=== PATIENT | female | born 2000 | race Caucasian/White ===

== ENCOUNTER 2018-01-17 09:59 | Emergency (ER) | payer OTHER, SELFPAY ==
[2018-01-17 11:09] LABS: Bilirubin Negative (Negative); Blood, Urine Negative (Negative); Clarity CLOUDY (Clear); Glucose, Urine (Dipstick) Negative (Negative); Leukocyte Trace (Negative); Nitrite Negative (Negative); Protein, Urine (Dipstick) Negative (Neg-Trace); Specific Gravity, Urine 1.015 (1.002-1.036); Urobilinogen 0.2 mg/dL (0.2-1.0); pH, Urine 7.5 (5.0-9.0)
[2018-01-17 11:11] LABS: Bacteria/HPF 1+ HPF (None Seen); Hyaline Casts/LPF 0-3 HYALINE CAST LPF (0-3 Hyaline); Pathc Cast-AUWi Flag 0.27 (0-2.49); RBC/HPF 0-3 HPF (0-3)
[2018-01-17 11:13] LABS: Pregnancy Test - Urine (BHCG) Negative (Negative); Pregu Control Background? CLEAR/WHITE (CLR/WHITE); Pregu Control Bar Appear? YES (CONTROL BAR); Specific Gravity 1.015 (1.002-1.036)
[2018-01-17] MEDS ORDERED: cefTRIAXone\\ROCEPHIN 250 MG VIAL ONE (11:35)
[2018-01-17] MEDS ORDERED: Lidocaine 1% PF 5 ML VIAL ONE (11:35)
[2018-01-17] MEDS ORDERED: Azithromycin 250 MG TAB ONE (11:35)
[2018-01-17] MEDS ORDERED: metroNIDAZOLE 250 MG TAB ONE (11:35)
[2018-01-19 01:06] LABS: Chlamydia by PCR DETECTED (NotDetected); GC by PCR Not Detected (NotDetected)
== END 2018-01-17 12:11 | disposition home or self-care (01) ==
LOC: ERS 09:59
DX: N89.8 Other specified noninflammatory disorders of vagina (principal)
CPT/HCPCS: 81003; 81015; 81025; 87086; 87480; 87491; 87510; 87591; 87660; 96372; J0696; J2001

== ENCOUNTER 2018-11-08 06:25 | Inpatient (IN) | payer OTHER ==
[2018-11-08 07:12] VITALS: BMI 31.4
--- NOTE | 2018-11-08 08:02 | PDOC.FPROB ---
FMR OB H&P: HPI - History of Present Illness Chief Complaint: LOF, cxns History of Present Illness: 18 yo @ 40.1 wk by 8.3 wk jeffrey presents for contractions starting this morning at 0230. She also reports leaking of fluid since 10 AM yesterday morning , with a gush of clear yellow fluid upon arrival to L&D. This has been complicated by +chlamydia in 3T with neg FLOWER 3 days ago. She also has had anemia of which resolved with vitamins. In addition, she failed her 1 hr GTT but passed her 3 hr GTT, indicating glucose intolerance. She is GBS negative. Primary Care Physician: at [facility] FMR OB H&P: Current - Care : 1 Para: 0 Gestational age: 40.1 Due date: 11/07/18 Dating Criteria: US @ 8.3 wk Course/Complications: Anemia of , resolved (last Hgb 11.9 on 10/05/18) +Chlamydia in 3T, her and partner treated, neg FLOWER on 11/05/18 Glucose intolerance. 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: +chlamydia in 2017 - Surgical History Sx History: None - Social History Social History: Denies alcohol/tobacco/drug use - Family History Family History: DM in maternal grandparents distant relative (unknown relation) with heart disease <50 yrs FMR OB H&P: Medications - Current Home Medications: Medication Instructions Recorded Confirmed Type No122/Iron/Folic Acid 1 each PO DAILY 08/07/18 11/08/18 History [ Multi Tablet] Allergies/Adverse Reactions: Allergies Allergy/AdvReac Type Severity Reaction Status Date / Time No Known Allergies Allergy Verified 11/08/18 10:50 FMR OB H&P: ROS - Review of Systems General: reports: fever/chills (+chills) Eyes: denies: eye pain, vision changes ENT: reports: other (Ears: no hearing loss, no ear pain Throat: no sore throat, no post nasal drip). denies: nasal congestion, rhinorrhea, sore throat Cardiovascular: denies: chest pain, palpitation Respiratory: denies: cough, congestion, shortness of breath Gastrointestinal: reports: abdominal pain, nausea, vomiting, diarrhea. denies: constipation Genitourinary (Female): reports: vaginal discharge, contractions, vaginal pressure. denies: dysuria, hematuria, vaginal bleeding Musculoskeletal: reports: pain (of belly with contractions). denies: swelling Neurologic: denies: headache Psychological: denies: depression, anxiety FMR OB H&P: Vital Signs - Maternal Vital signs: Vital Signs - First Documented Temp Pulse Resp BP 99.1 F 87 18 125/76 11/08/18 06:32 11/08/18 06:32 11/08/18 06:32 11/08/18 06:32 - Heart Tones Baseline: 145 Variability: minimal (Minimal to moderate, 1 variable decel with cervical check. Improved to Cat 1 with baseline 145, mod variability, accelerations present, and no decels) Acceleration: present Deceleration: variable Category: category 2 FMR OB H&P: Physical Exam - Physical Exam General: awake, alert and oriented Deviation from normal: In visible distress and pain with contractions HEENT: normocephalic and atraumatic, PERRLA, EOMI, MMM, conjunctiva clear, normal nasal mucosa, oropharynx clear Neck: supple, no LAD Heart: RRR, normal S1/S2, no murmurs/rubs/gallops, pulses present General: CTAB, no respiratory distress, good air movement, no wheezing, no retractions Abdomen: soft, gravid, non-tender, bowel sound present Neurological: no focal deficit Skin: no rash, good tugor, capillary refill <2 seconds Psychiatric: intact recent and remote memory, good judgement and insight, normal mood and affect - Pelvic Exam Vulva: normal hair distribution, appropriate rayo stage SVE: 2/80/-1 Membranes: SROM Presentation: cephalic, confirmed with sono Estimated Weight: 7 lbs FMR OB H&P: A/P - Problem List (1) Third trimester Current Visit: Yes Status: Acute Code(s): Z34.93 - ENCNTR FOR SUPRVSN OF NORMAL PREG, UNSP, THIRD TRIMESTER (2) Anemia affecting Current Visit: Yes Status: Resolved Code(s): O99.019 - ANEMIA COMPLICATING , UNSPECIFIED TRIMESTER (3) Hx of maternal chlamydia infection, currently Current Visit: Yes Status: Acute Code(s): O09.299 - SUPRVSN OF PREG W POOR REPRODCTV OR OBSTET HISTORY, UNSP TRI; Z86.19 - PERSONAL HISTORY OF OTHER INFECTIOUS AND PARASITIC DISEASES; Z87.59 - PERSONAL HISTORY OF COMP OF PREG, CHLDBRTH AND THE PUERP (4) Current Visit: Yes Status: Acute (5) -induced glucose intolerance Current Visit: Yes Status: Acute Code(s): O99.810 - ABNORMAL GLUCOSE COMPLICATING Discussion: Date/Time: 11/08/18 0802 18 yo @ 40.1 wk by 8.3 wk jeffrey presents for contractions and SROM sIUP -SVE /-1 @ 0730 -FHTs now Cat 1: baseline 145, mod variability, accels present, no decels, cxns q2min -GBS negative -chlamydia FLOWER negative on 11/05/18, repeat G/C pending -Desires epidural -LR @ 125 -zofran for nausea -Patient unsure of contraception after delivery -Plans to breast and bottle feed -Rupture reported almost 24 hrs prior, monitor closely for s/s of chorioamnionitis -Patient currently in latent labor, Anticipate -Recheck after epidural placement, consider IUPC if no cervical change to monitor SVUs and titrate pitocin Attending Addendum - Attending Addendum Date/Time: 11/08/18 1352 I personally evaluated the patient and discussed the management with Dr. Greco this morning. I agree with the History, Examination, Assessment and Plan documented above with any addition or exceptions noted below.
[2018-11-08] MEDS ORDERED: Promethazine HCl 25 MG/ML VIAL IM PRN ×2 (08:22→10:33)
[2018-11-08] MEDS ORDERED: Ondansetron PF 4 MG/2 ML Vial IVP PRN ×2 (08:22→10:33)
[2018-11-08] MEDS ORDERED: Docusate 100 MG CAP PO PRN (08:22)
[2018-11-08] MEDS ORDERED: Acetaminophen 500 MG TAB PO PRN (08:22)
[2018-11-08] MEDS ORDERED: Butorphanol Tartrate 1 MG/ML VIAL SLOW IVP PRN (08:22)
[2018-11-08] MEDS ORDERED: Lidocaine 1% (PF) 30 ML VIAL SC PRN (08:27)
[2018-11-08] MEDS: Lactated Ringer's 1,000 ML IV SCH ×3 (08:33→12:02)
[2018-11-08] MEDS ORDERED: Ondansetron PF 4 MG/2 ML Vial ONE (08:52)
[2018-11-08] MEDS ORDERED: Fentanyl 4 mcg/Bup 0.1% Cadd 100 ML ONE ×2 (09:13→16:15)
[2018-11-08 09:37] LABS: Hemoglobin 12.7 g/dL (12.0-16.0); Mean Corpuscular HGB CONC 32.9 g/dL (32.0-36.0); Mean Corpuscular Hemoglobin 26.9 pg (25.0-35.0); Mean Corpuscular Volume 81.8 fL (78.0-98.0); Mean Platelet Volume 6.5 fL (7.4-10.4); Platelet Count 271 thou/uL (130-400); RBC Distribution Width 13.4 % (11.5-14.5); Red Blood Cell (RBC) Count 4.71 mill/uL (4.00-5.20)
[2018-11-08 10:14] LABS: HBSAg Index 0.19 S/CO (0-0.99); Hep B Surf Ag Non-Reactive S/CO (NonReactive); Syphilis Antibody Nonreactive (Nonreactive); Syphilis Antibody Index 0.18 S/CO (<1.00 Non-Reactive)
[2018-11-08] MEDS: Fentanyl 4 mcg/Bupivacaine 0.1% Cassette 100 ML EPIDURAL SCH ×2 (10:30→16:17)
[2018-11-08] MEDS ORDERED: Lactated Ringer's 500 ML IV PRN (10:33)
[2018-11-08] MEDS ORDERED: Acetaminophen 325 MG TAB PO PRN (10:33)
[2018-11-08] MEDS ORDERED: Naloxone HCl 0.4 mg/ml Vial IVP PRN ×2 (10:33)
[2018-11-08] MEDS ORDERED: ePHEDrine/0.9% NaCl/PF SYRINGE 50 mg/10 ml SLOW IVP PRN (10:33)
[2018-11-08] MEDS ORDERED: Eucerin (Mineral Oil/Petrolatum,White) 30 gm Jar TOP PRN (10:33)
[2018-11-08] MEDS ORDERED: diphenhydrAMINE 50 MG/ML VIAL IVP PRN (10:33)
[2018-11-08] MEDS ORDERED: Communication Order-Pharmacy FS SCH (10:45)
[2018-11-08] MEDS ORDERED: Bupivacaine/Epinephrine 0.25% 30 ML VIAL ONE (11:11)
--- NOTE | 2018-11-08 11:32 | PDOC.LDPN ---
Labor & Delivery Progress Note - Subjective Subjective: comfortable - Objective Vital signs reviewed and normal: yes General: NAD, resting Dilation: 7 Effacement: 100% Station: 1+ FHT: category 1, variability present [place] contractions every: q2min - Assessment (1) Third trimester Code(s): Z34.93 - ENCNTR FOR SUPRVSN OF NORMAL PREG, UNSP, THIRD TRIMESTER Current Visit: Yes Status: Acute (2) Anemia affecting Code(s): O99.019 - ANEMIA COMPLICATING , UNSPECIFIED TRIMESTER Current Visit: Yes Status: Resolved (3) Hx of maternal chlamydia infection, currently Code(s): O09.299 - SUPRVSN OF PREG W POOR REPRODCTV OR OBSTET HISTORY, UNSP TRI ; Z86.19 - PERSONAL HISTORY OF OTHER INFECTIOUS AND PARASITIC DISEASES; Z87.59 - PERSONAL HISTORY OF COMP OF PREG, CHLDBRTH AND THE PUERP Current Visit: Yes Status: Acute (4) Current Visit: Yes Status: Acute (5) -induced glucose intolerance Code(s): O99.810 - ABNORMAL GLUCOSE COMPLICATING Current Visit: Yes Status: Acute Plan: continue plan of care
--- NOTE | 2018-11-08 13:07 | PDOC.LDPN ---
Labor & Delivery Progress Note - Subjective Subjective: comfortable - Objective Vital signs reviewed and normal: yes General: NAD Dilation: 8 Effacement: 100% Station: 1+ FHT: category 1, variability present [place] contractions every: 1-3 minutes - Assessment (1) Third trimester Code(s): Z34.93 - ENCNTR FOR SUPRVSN OF NORMAL PREG, UNSP, THIRD TRIMESTER Current Visit: Yes Status: Acute (2) Anemia affecting Code(s): O99.019 - ANEMIA COMPLICATING , UNSPECIFIED TRIMESTER Current Visit: Yes Status: Resolved (3) Hx of maternal chlamydia infection, currently Code(s): O09.299 - SUPRVSN OF PREG W POOR REPRODCTV OR OBSTET HISTORY, UNSP TRI ; Z86.19 - PERSONAL HISTORY OF OTHER INFECTIOUS AND PARASITIC DISEASES; Z87.59 - PERSONAL HISTORY OF COMP OF PREG, CHLDBRTH AND THE PUERP Current Visit: Yes Status: Acute (4) Current Visit: Yes Status: Acute (5) -induced glucose intolerance Code(s): O99.810 - ABNORMAL GLUCOSE COMPLICATING Current Visit: Yes Status: Acute Plan: continue plan of care -: 18 yo @ 40.1 wk by 8.3 wk sono presents for contractions and SROM sIUP -SVE 280/-1 @ 0730 -SVE 595/1 -SVE 7/100/+1 @ 1100 -SVE 8/100/+1 @ 1300 -FHTs now Cat 1: baseline 125, mod variability, accels present, no decels, cxns q2min; occasional periods of minimal variability -GBS negative -chlamydia FLOWER negative on 11/05/18 -Desires epidural -LR @ 125 -zofran for nausea -Patient unsure of contraception after delivery -Plans to breast and bottle feed -Rupture reported almost 24 hrs prior, monitor closely for s/s of chorioamnionitis -Patient currently in latent labor, Anticipate -Recheck SVE in 2 hrs
--- NOTE | 2018-11-08 15:14 | PDOC.LDPN ---
Labor & Delivery Progress Note - Subjective Subjective: comfortable - Objective Vital signs reviewed and normal: yes General: NAD, resting SVE: 9/100/+2 Dilation: 9 Effacement: 100% Station: 2+ FHT: category 1, variability present - Assessment (1) Third trimester Code(s): Z34.93 - ENCNTR FOR SUPRVSN OF NORMAL PREG, UNSP, THIRD TRIMESTER Current Visit: Yes Status: Acute (2) Anemia affecting Code(s): O99.019 - ANEMIA COMPLICATING , UNSPECIFIED TRIMESTER Current Visit: Yes Status: Resolved (3) Hx of maternal chlamydia infection, currently Code(s): O09.299 - SUPRVSN OF PREG W POOR REPRODCTV OR OBSTET HISTORY, UNSP TRI ; Z86.19 - PERSONAL HISTORY OF OTHER INFECTIOUS AND PARASITIC DISEASES; Z87.59 - PERSONAL HISTORY OF COMP OF PREG, CHLDBRTH AND THE PUERP Current Visit: Yes Status: Acute (4) Current Visit: Yes Status: Acute (5) -induced glucose intolerance Code(s): O99.810 - ABNORMAL GLUCOSE COMPLICATING Current Visit: Yes Status: Acute Plan: continue plan of care -: 18 yo @ 40.1 wk by 8.3 wk sono presents for contractions and SROM sIUP -SVE 2/80/-1 @ 0730 -SVE 5/95/1 -SVE 7/100/+1 @ 1100 -SVE 8/100/+1 @ 1300 -sve 9/100/+2 @ 1500 -FHTs Cat 1: baseline 130 mod variability, cxns q2min, decel while doing cervical check -GBS negative -chlamydia FLOWER negative on 11/05/18 -Epidural in place, patient resting comfortably -LR @ 125 -zofran for nausea -Patient unsure of contraception after delivery -Plans to breast and bottle feed -Rupture reported almost 24 hrs prior, monitor closely for s/s of chorioamnionitis -Patient currently in active labor, Anticipate -Recheck SVE in 2 hrs <Afia Greco - Last Filed: 11/08/18 15:14> Attending Addendum - Attending Addendum Date/Time: 11/08/18 [id number] I personally evaluated the patient and discussed the management with Dr. Greco. I agree with the History, Examination, Assessment and Plan documented above with any addition or exceptions noted below. Two decelerations around last check but subsequently cat 1 after repositioning and FB. Continue to monitor. Anticipate . Dr. Murguia updated by residents. <Rico Cedeño - Last Filed: 11/08/18 16:36>
--- NOTE | 2018-11-08 17:04 | PDOC.LDPN ---
Labor & Delivery Progress Note - Subjective Subjective: comfortable - Objective General: NAD Dilation: 10 Effacement: 100% Station: 2+ FHT: category 2, variable decelerations, variability present [place] contractions every: 2 min - Assessment (1) Third trimester Code(s): Z34.93 - ENCNTR FOR SUPRVSN OF NORMAL PREG, UNSP, THIRD TRIMESTER Current Visit: Yes Status: Acute (2) Anemia affecting Code(s): O99.019 - ANEMIA COMPLICATING , UNSPECIFIED TRIMESTER Current Visit: Yes Status: Resolved (3) Hx of maternal chlamydia infection, currently Code(s): O09.299 - SUPRVSN OF PREG W POOR REPRODCTV OR OBSTET HISTORY, UNSP TRI ; Z86.19 - PERSONAL HISTORY OF OTHER INFECTIOUS AND PARASITIC DISEASES; Z87.59 - PERSONAL HISTORY OF COMP OF PREG, CHLDBRTH AND THE PUERP Current Visit: Yes Status: Acute (4) Current Visit: Yes Status: Acute (5) -induced glucose intolerance Code(s): O99.810 - ABNORMAL GLUCOSE COMPLICATING Current Visit: Yes Status: Acute Plan: continue plan of care -: 18 yo @ 40.1 wk by 8.3 wk sono presents for contractions and SROM sIUP -SVE 2/80/-1 @ 0730 -SVE 5/95/1 -SVE 7/100/+1 @ 1100 -SVE 8/100/+1 @ 1300 -sve 9/100/+2 @ 1500 -SVE 10/100/+2 @ 1700 -FHTs Cat 1: baseline 130 mod variability, cxns q2min, decel while doing cervical check -GBS negative -chlamydia FLOWER negative on 11/05/18 -Epidural in place, patient resting comfortably -LR @ 125 -zofran for nausea -Patient unsure of contraception after delivery -Plans to breast and bottle feed -Rupture reported >24 hrs prior, monitor closely for s/s of chorioamnionitis -Anticipate
[2018-11-08] MEDS: NS / Oxytocin 40 units/1000ml 1,000 ML IV PRN ×2 (17:49→18:21)
--- NOTE | 2018-11-08 18:09 | PDOC.OPDEL ---
OB Operative/Delivery Note Delivery Dr/Surgeon: Mina Castillo Assist: attending Pre-Delivery Diagnosis: active labor Procedure/Post Delivery Dx: spontaneous vaginal delivery Weeks gestation: 40 (40.1) Anesthesia: epidural - Findings A Sex: female - 1 min: 9 - 5 min: 9 - Additional Findings/Plan Placenta delivered: spontaneous Repaired Obstetrical Laceration: 1st degree (rt posterior vaginal laceration repaired, rt periurethral 1st degree hemostatic laceration) Estimated blood loss: 750 Compilations/Other Findings: Vaginal Delivery Dictation Guideline Delivering Physician: Mina Castillo Attending: Procedure: Spontaneous Vaginal Delivery Anesthesia: epidural EBL: 750 ml Pre-op Diagnosis: 1. Term intrauterine in labor 2. Hx of glucose intolerance 3. Hx Chlamydia in 3T, s/p FLOWER Post-op Diagnosis: 1. Term intrauterine , delivered 2. same as above Indications: A 18y/o female presents in latent labor Delivery Note: This is 18 yo F G1 now P1 @ 40.1 wks who delivered a viable F infant at 1544 on 11/08/18. Following an uneventful antepartum course, a vigorous Female was delivered over an intact perineum in the AMEENA position. Anterior Shoulder and then remainder of the body delivered. No nuchal cord. The head was held down and mouth and nares were bulb suctioned. Cord clamped after delayed cord clamping and cut and cord blood collected. Placenta delivered intact in the Paul presentation with a 3 vessel cord noted. Fundal massage was performed and the fundus was firm. The cervix and vagina were inspected. Rt periurethral first degree laceration hemostatic. Rt posterior vaginal wall first degree laceration noted and repaired with 3.0 vicryl in the usual fashion with good approximation and hemostasis. Infant went to nursery in good condition for routine care. Apgars were 9/9 at 1 & 5 minutes, respectively. Patient tolerated delivery well and went to after routine recovery/ care. Post delivery plan: routine recovery
[2018-11-08] MEDS ORDERED: Milk Of Magnesia 30 ML UDCUP PO PRN (18:44)
[2018-11-08] MEDS ORDERED: Lanolin Ointment 7 GM TUBE TOP PRN (18:44)
[2018-11-08] MEDS ORDERED: Benzocaine/Menthol 20-0.5% 60 ML CAN TOP PRN (18:44)
[2018-11-08] MEDS ORDERED: NS / Oxytocin 40 units/1000ml 1,000 ML IV SCH (18:44)
[2018-11-08] MEDS ORDERED: Bisacodyl 10 MG SUPP PR PRN (18:44)
[2018-11-08] MEDS: Ibuprofen 800 MG TAB PO SCH (19:14)
[2018-11-08 19:33] LABS: Hemoglobin 12.8 g/dL (12.0-16.0)
[2018-11-08] MEDS: Docusate Calcium (SURFAK) 240 MG CAP PO SCH (21:55)
[2018-11-09] MEDS: Ibuprofen 800 MG TAB PO SCH ×3 (06:12→22:03)
--- NOTE | 2018-11-09 06:33 | PDOC.PP ---
Post Progress Note Post Day #: 1 Subjective: Patient is tired, did not sleep much last night. States she has a slight headache. Numbness has resolved. Patient has been up and walking, plans to walk to shower this morning. Eating and drinking small amounts. Blood flow is about the same as a period. Voided, no BM yet. PO intake tolerated: yes Flatus: yes Ambulation: yes Vital Signs (12 hours) Temp Pulse Resp BP Pulse Ox 11/09/18 00:05 99.3 F 98 28 H 110/68 11/08/18 22:05 98.7 F 79 28 H 119/67 11/08/18 21:05 98.7 F 80 24 H 128/70 98 Weight Weight 78.018 kg - Physical Examination General: NAD Cardiovascular: no m/r/g, RRR Respiratory: clear to auscultation bilaterally, non-labored breathing Abdominal: + bowel sounds, lochia, no distention, appropriately TTP Extremities: negative homans (B) Neurological: no gross focal deficits Psychiatric: A&Ox3, normal affect Result Diagrams: 11/08/18 19:25 Additional Labs: Post Labs Blood Type O POSITIVE 11/08/18 09:07 Hep Bs Antigen Non-Reactive S/CO (NonReactive) 11/08/18 09:06 (1) Third trimester Code(s): Z34.93 - ENCNTR FOR SUPRVSN OF NORMAL PREG, UNSP, THIRD TRIMESTER Status: Acute (2) Anemia affecting Code(s): O99.019 - ANEMIA COMPLICATING , UNSPECIFIED TRIMESTER Status : Resolved (3) Hx of maternal chlamydia infection, currently Code(s): O09.299 - SUPRVSN OF PREG W POOR REPRODCTV OR OBSTET HISTORY, UNSP TRI ; Z86.19 - PERSONAL HISTORY OF OTHER INFECTIOUS AND PARASITIC DISEASES; Z87.59 - PERSONAL HISTORY OF COMP OF PREG, CHLDBRTH AND THE PUERP Status: Acute (4) Status: Acute (5) -induced glucose intolerance Code(s): O99.810 - ABNORMAL GLUCOSE COMPLICATING Status: Acute - Assessment/Plan 18 yo @ 40.1 wk by 8.3 wk sono presents for contractions and SROM PPD#1 -Continue to work on feeding/stooling/ambulating today, has been eating a little and ambulated some already, has voided -GBS negative -chlamydia FLOWER negative on 11/05/18 -Rt 1st degree laceration, s/p repair -EBL 750 ml -Plans to breast and bottle feed, consulted -Rupture reported >24 hrs prior, monitor closely for s/s of infection -Epidural numbness resolved -Unsure about control at this time -IBP and tylenol for pain control Dispo: likely discharge tomorrow
[2018-11-09] MEDS ORDERED: Adacel (T-DAP) 0.5 ML SYRINGE IM ONE (09:00)
[2018-11-09] MEDS: Ferrous Sulfate 325 MG TAB PO SCH ×2 (10:33→19:10)
[2018-11-09] MEDS: Prenatal Vitamin 1 TAB PO SCH (10:34)
[2018-11-09] MEDS: Docusate Calcium (SURFAK) 240 MG CAP PO SCH ×2 (10:34→22:03)
--- NOTE | 2018-11-10 05:31 | PDOC.PP ---
Post Progress Note Post Day #: 2 Subjective: Eating, voiding, stooling, ambulating well. She is having some difficulty with breast feeding this morning. Pain is well controlled. Lochia is minimal. PO intake tolerated: yes Flatus: yes Ambulation: yes Vital Signs (12 hours) Temp Pulse Resp BP BP Pulse Ox 11/10/18 00:00 97.8 F 78 20 112/64 11/09/18 20:19 98.1 F 87 16 102/62 97 Weight Weight 78.018 kg - Physical Examination General: NAD Cardiovascular: no m/r/g, RRR Respiratory: clear to auscultation bilaterally Abdominal: + bowel sounds, lochia (minimal), no distention, appropriately TTP Extremities: negative homans (B) Neurological: no gross focal deficits Psychiatric: A&Ox3, normal affect Result Diagrams: 11/10/18 05:55 Additional Labs: Post Labs Blood Type O POSITIVE 11/08/18 09:07 Hep Bs Antigen Non-Reactive S/CO (NonReactive) 11/08/18 09:06 (1) Third trimester Code(s): Z34.93 - ENCNTR FOR SUPRVSN OF NORMAL PREG, UNSP, THIRD TRIMESTER Status: Acute (2) Anemia affecting Code(s): O99.019 - ANEMIA COMPLICATING , UNSPECIFIED TRIMESTER Status : Resolved (3) Hx of maternal chlamydia infection, currently Code(s): O09.299 - SUPRVSN OF PREG W POOR REPRODCTV OR OBSTET HISTORY, UNSP TRI ; Z86.19 - PERSONAL HISTORY OF OTHER INFECTIOUS AND PARASITIC DISEASES; Z87.59 - PERSONAL HISTORY OF COMP OF PREG, CHLDBRTH AND THE PUERP Status: Acute (4) Status: Acute (5) -induced glucose intolerance Code(s): O99.810 - ABNORMAL GLUCOSE COMPLICATING Status: Acute - Assessment/Plan 18 yo now P1 delivered via @ 40.1 wk on 11/08/18 @ 1744 PPD#2 -feeding/stooling/voiding/ambulating -Uterus firm and below umbilicus -GBS negative -chlamydia FLOWER negative on 11/05/18 -Rt 1st degree laceration, s/p repair -EBL 750 ml -Hgb 12.8-> 10.1, discharge on Fe -Plans to breast and bottle feed, consulted -No s/s of infection -Unsure about control at this time -IBP and tylenol for pain control Dispo: likely discharge today
[2018-11-10 06:15] LABS: Hemoglobin 10.1 g/dL (12.0-16.0); Mean Corpuscular HGB CONC 33.3 g/dL (32.0-36.0); Mean Corpuscular Hemoglobin 27.8 pg (25.0-35.0); Mean Corpuscular Volume 83.6 fL (78.0-98.0); Mean Platelet Volume 6.4 fL (7.4-10.4); Platelet Count 284 thou/uL (130-400); RBC Distribution Width 13.5 % (11.5-14.5); Red Blood Cell (RBC) Count 3.62 mill/uL (4.00-5.20); White Blood Cell (WBC) Count 14.3 thou/uL (4.8-10.8)
[2018-11-10] MEDS: Ibuprofen 800 MG TAB PO SCH ×2 (06:18→14:38)
[2018-11-10 07:52] VITALS: BP 120/77; TEMP 98.2
[2018-11-10] MEDS: Prenatal Vitamin 1 TAB PO SCH (10:07)
[2018-11-10] MEDS: Docusate Calcium (SURFAK) 240 MG CAP PO SCH (10:07)
[2018-11-10] MEDS: Ferrous Sulfate 325 MG TAB PO SCH ×2 (10:07→18:04)
== END 2018-11-10 18:17 | disposition home or self-care (01) | DRG 807 ==
LOC: L&D/OP 06:25 → L&D 08:14 → 3SW 21:20
PROVIDERS: ADMIT Family Medicine; ATTEND Family Medicine
PROC: 10E0XZZ Delivery of Products of Conception, External Approach (ICD-10-PCS; principal; 2018-11-08)
PROC: 0HQ9XZZ Repair Perineum Skin, External Approach (ICD-10-PCS; 2018-11-08)
DX: O70.0 First degree perineal laceration during delivery (principal); Z37.0 Single live birth; Z3A.40 40 weeks gestation of pregnancy; O71.82 Other specified trauma to perineum and vulva; O99.02 Anemia complicating childbirth; D64.9 Anemia, unspecified; O99.814 Abnormal glucose complicating childbirth
CPT/HCPCS: 36415; 51702; 76815; 85027; 86780; 86850; 86900; 86901; 87340; 99285; J0595; J2001; J2405

== ENCOUNTER 2018-12-17 18:02 | Emergency (ER) | payer OTHER ==
[2018-12-17 18:33] LABS: #Basophils 0.1 thou/uL (0.0-0.2); #Eosinphils 0.2 thou/uL (0.0-0.7); #Lymphocytes 3.5 thou/uL (1.20-3.40); #Monocytes 0.9 thou/uL (0.11-0.59); #Neutrophils 7.1 thou/uL (1.40-6.50); %Basophils 0.6 % (0.0-1.0); %Eosinophils 1.5 % (0.0-10.0); %Lymphocytes 29.7 % (28.0-48.0); %Monocytes 7.6 % (0.0-4.0); %Neutrophils 60.7 % (31.0-61.0); Hemoglobin 13.9 g/dL (12.0-16.0); Mean Corpuscular HGB CONC 32.6 g/dL (32.0-36.0); Mean Corpuscular Hemoglobin 27.7 pg (25.0-35.0); Mean Platelet Volume 5.9 fL (7.4-10.4); Platelet Count 406 thou/uL (130-400); RBC Distribution Width 13.1 % (11.5-14.5); White Blood Cell (WBC) Count 11.7 thou/uL (4.8-10.8)
[2018-12-17 18:36] LABS: BHCG - Serum Negative (NEGATIVE); Pregs Control Background? CLEAR/WHITE (CLR/WHITE); Pregs Control Bar Appear? YES (CONTROL BAR)
== END 2018-12-17 19:04 | disposition home or self-care (01) ==
LOC: ERS 18:02
DX: N93.9 Abnormal uterine and vaginal bleeding, unspecified (principal)
CPT/HCPCS: 36415; 84702; 84703; 85025; 99284

== ENCOUNTER 2019-12-02 05:30 | Inpatient (IN) | payer OTHER ==
--- NOTE | 2019-12-02 00:06 | PDOC.LDHP ---
Labor and Delivery H&P Chief complaint: scheduled induction HPI: 19 y/o at 40 and 2/7 weeks presents for term induction of labor Current gestational age (weeks): 40 Due date: 11/30/19 Grav: 2 Para: 1 Current complications: none Abnormal US findings: No Current medications: pre-adriana vitamins Previous surgical history: none Allergies/Adverse Reactions: Allergies Allergy/AdvReac Type Severity Reaction Status Date / Time No Known Allergies Allergy Verified 11/08/18 10:50 Social history: none - Physical Exam Vital signs reviewed and normal: yes General: NAD Heart: RRR Lungs: CTAB Abdomen: NTTP Extremeties: no edema FHT: category 1 - Assessment L&D Assessment: elective induction at term - Plan Plan: admit to L&D, cervical ripening
[~2019-12-02 05:30] MED LIST: Acetaminophen 500 MG TAB PO PRN; Butorphanol Tartrate 1 MG/ML VIAL SLOW IVP PRN; Carboprost 250 MCG/ML AMP IM PRN; Diphenoxylate HCl/Atropine Tablet PO PRN; Docusate 100 MG CAP PO PRN; HYDROcodone/Acetaminophen 5/325 mg Tablet PO PRN; Ibuprofen 800 MG TAB PO PRN; Lidocaine 1% (PF) 30 ML VIAL SC PRN; Methylergonovine 0.2 MG/ML VIAL IM PRN; Misoprostol 200 MCG TAB PR PRN; NS / Oxytocin 40 units/1000ml 1,000 ML IV PRN; NS w/ Oxytocin 10 units 500 ML IV SCH; Ondansetron PF 4 MG/2 ML Vial IVP PRN; Promethazine HCl 25 MG/ML VIAL IM PRN; hydrALAZINE 20 MG/ML VIAL SLOW IVP PRN
[2019-12-02 06:57] VITALS: BMI 31.1
[2019-12-02] MEDS: Lactated Ringer's 1,000 ML IV SCH ×2 (07:33→20:14)
[2019-12-02 07:52] LABS: Hemoglobin 10.4 g/dL (12.0-16.0); Mean Corpuscular Hemoglobin 23.3 pg (27.0-31.0); Mean Corpuscular Volume 70.5 fL (78.0-98.0); Mean Platelet Volume 7.2 fL (7.4-10.4); Platelet Count 354 thou/uL (130-400); RBC Distribution Width 15.2 % (11.5-14.5); Red Blood Cell (RBC) Count 4.45 mill/uL (4.20-5.40); White Blood Cell (WBC) Count 10.9 thou/uL (4.8-10.8)
[2019-12-02 08:28] LABS: HBSAg Index 0.18 S/CO (0-0.99); Hep B Surf Ag Non-Reactive S/CO (NonReactive); Syphilis Antibody Nonreactive (Nonreactive); Syphilis Antibody Index 0.09 S/CO (<1.00 Non-Reactive)
[2019-12-02] MEDS ORDERED: Fentanyl 4 mcg/Bup 0.1% Cadd 0 ML ONE (08:46)
[2019-12-02] MEDS ORDERED: Fentanyl 4 mcg/Bup 0.1% Cadd 100 ML ONE (08:46)
[2019-12-02] MEDS ORDERED: diphenhydrAMINE 50 MG/ML VIAL IVP PRN (09:31)
[2019-12-02] MEDS ORDERED: Lactated Ringer's 500 ML IV PRN (09:31)
[2019-12-02] MEDS ORDERED: Ondansetron PF 4 MG/2 ML Vial IVP PRN ×2 (09:31→15:51)
[2019-12-02] MEDS ORDERED: ePHEDrine/0.9% NaCl/PF SYRINGE 50 mg/10 ml SLOW IVP PRN (09:31)
[2019-12-02] MEDS ORDERED: Naloxone HCl 0.4 mg/ml Vial IVP PRN ×2 (09:31)
[2019-12-02] MEDS ORDERED: Promethazine HCl 25 MG/ML VIAL IM PRN ×2 (09:31→15:51)
[2019-12-02] MEDS ORDERED: Acetaminophen 325 MG TAB PO PRN (09:31)
[2019-12-02] MEDS ORDERED: Bupivacaine 0.25% HCL 30 ML VIAL ONE (09:43)
[2019-12-02] MEDS ORDERED: Fentanyl 4 mcg/Bupivacaine 0.1% Cassette 100 ML EPIDURAL SCH (09:45)
[2019-12-02] MEDS ORDERED: Communication Order-Pharmacy FS PRN (09:45)
[2019-12-02] MEDS ORDERED: Terbutaline Sulfate 1 MG/ML VIAL ONE (10:21)
[2019-12-02] MEDS ORDERED: Methylergonovine 0.2 MG/ML VIAL IM PRN (15:51)
[2019-12-02] MEDS ORDERED: Misoprostol 200 MCG TAB VAG PRN (15:51)
[2019-12-02] MEDS ORDERED: NS / Oxytocin 40 units/1000ml 1,000 ML IV SCH (15:51)
[2019-12-02] MEDS ORDERED: Bisacodyl 10 MG SUPP PR PRN (15:51)
[2019-12-02] MEDS ORDERED: HYDROcodone/Acetaminophen 5/325 mg Tablet PO PRN ×2 (15:51)
[2019-12-02] MEDS ORDERED: Preparation H Ointment 28 GM TUBE PR PRN (15:51)
[2019-12-02] MEDS ORDERED: diphenhydrAMINE 25 MG CAP PO PRN (15:51)
[2019-12-02] MEDS ORDERED: Lanolin Ointment 7 GM TUBE TOP PRN (15:51)
[2019-12-02] MEDS ORDERED: Benzocaine-Menthol 82.5 ML CAN TOP PRN (15:51)
[2019-12-02] MEDS ORDERED: hydrALAZINE 20 MG/ML VIAL SLOW IVP PRN (15:51)
[2019-12-02] MEDS ORDERED: Milk Of Magnesia 30 ML UDCUP PO PRN (15:51)
[2019-12-02] MEDS: Ferrous Sulfate 325 MG TAB PO SCH (17:59)
[2019-12-02] MEDS: Ibuprofen 800 MG TAB PO SCH (18:50)
--- NOTE | 2019-12-02 22:14 | DN ---
DATE OF PROCEDURE: 12/02/2019 TIME OF SERVICE: 1335 central standard time. PREOPERATIVE DIAGNOSIS: Intrauterine at 40 weeks and 2 days with a term induction of labor. POSTOPERATIVE DIAGNOSIS: Intrauterine at 40 weeks and 2 days with a term induction of labor. PROCEDURE: Spontaneous vaginal delivery over intact perineum. FINDINGS: Viable female , weighing 8 pounds 9 ounces, weighing 3887 g with Apgars of 8 and 9. QUANTITATIVE BLOOD LOSS: 271 mL. COMPLICATIONS: None. PROCEDURE IN DETAIL: The patient presented to [facility] where she was admitted to the labor and delivery service. The patient underwent a normal and uneventful labor with normal cervical dilatation until she was found to be completely dilated. She was then allowed to push and was able to bring the baby down and delivered the baby in a vertex presentation without difficulties. Once the head delivered in occiput anterior position, the shoulders followed spontaneously along with the rest of the baby's body. Once out the baby's mouth and nose were bulb suctioned. The cord was clamped and cut and baby was handed to waiting attendants. Cord blood was collected. Gentle fundal massage was performed and the placenta delivered intact without problems. Hemostasis was assured. Quantitative blood loss was calculated. Inspection of the cervix, vaginal vault, and perineum did not reveal any lacerations needing suturing. Once again, hemostasis was within normal limits and the patient was allowed to recover in the labor and delivery room. Baby went to nursery. Job ID: [id number]
[2019-12-03] MEDS: Docusate Calcium (SURFAK) 240 MG CAP PO SCH ×2 (01:37→13:30)
[2019-12-03] MEDS: Ibuprofen 800 MG TAB PO SCH ×2 (05:06→13:30)
[2019-12-03 06:38] LABS: Hemoglobin 8.9 g/dL (12.0-16.0); Mean Corpuscular HGB CONC 33.1 g/dL (32.0-36.0); Mean Corpuscular Hemoglobin 23.1 pg (27.0-31.0); Mean Corpuscular Volume 69.9 fL (78.0-98.0); Mean Platelet Volume 7.3 fL (7.4-10.4); Platelet Count 296 thou/uL (130-400); RBC Distribution Width 15.1 % (11.5-14.5); Red Blood Cell (RBC) Count 3.86 mill/uL (4.20-5.40); White Blood Cell (WBC) Count 12.6 thou/uL (4.8-10.8)
[2019-12-03] MEDS ORDERED: Prenatal Vitamin 1 TAB PO SCH (09:00)
[2019-12-03] MEDS ORDERED: Varicella virus, LIVE 0.5 ML VIAL SC ONE (09:00)
[2019-12-03] MEDS ORDERED: Measles/Mumps/Rubella 10 MCG/0.5 ML VIAL SC ONE (09:00)
[2019-12-03] MEDS ORDERED: Adacel (T-DAP) 0.5 ML SYRINGE IM ONE (09:00)
[2019-12-03] MEDS: Ferrous Sulfate 325 MG TAB PO SCH (13:30)
[2019-12-03 16:58] VITALS: BP 114/65; TEMP 98.1
== END 2019-12-03 16:50 | disposition home or self-care (01) | DRG 807 ==
LOC: L&D 06:10 → 3SW 16:08
PROVIDERS: ADMIT Obstetrics & Gynecology; ATTEND Obstetrics & Gynecology
PROC: 10E0XZZ Delivery of Products of Conception, External Approach (ICD-10-PCS; principal; 2019-12-02)
PROC: 3E033VJ Introduction of Other Hormone into Peripheral Vein, Percutaneous Approach (ICD-10-PCS; 2019-12-02)
DX: O80 Encounter for full-term uncomplicated delivery (principal); Z37.0 Single live birth; Z3A.40 40 weeks gestation of pregnancy
CPT/HCPCS: 36415; 51702; 85027; 86780; 86850; 86900; 86901; 87340; J2590; J3105; S0020

== ENCOUNTER 2021-05-21 15:22 | Emergency (ER) | payer OTHER | END 2021-05-21 18:46 | disposition home or self-care (01) | LOC: ERS 15:22 | DX: L02.31 Cutaneous abscess of buttock (principal); F17.290 Nicotine dependence, other tobacco product, uncomplicated | CPT/HCPCS: 99282 ==

== ENCOUNTER 2021-07-26 12:10 | Emergency (ER) | payer OTHER | END 2021-07-26 14:17 | disposition home or self-care (01) | LOC: ERS 12:10 | DX: J02.0 Streptococcal pharyngitis (principal); F17.290 Nicotine dependence, other tobacco product, uncomplicated | CPT/HCPCS: 99282 ==